=== PATIENT | male | born 1945 | race Caucasian/White ===

== ENCOUNTER → 2016-12-27 | Day surgery (SDC) | payer OTHER, MEDICARE ==
[2016-12-21 08:13] VITALS: Ht 177.8 cm; Wt 121.4 kg
[~2016-12-27] VITALS: Ht 177.8 cm; Wt 121.4 kg
[~2016-12-27] MED LIST: ATOR-24 PO; ATROPINE SULFATE 0.1 MG/ML 5ML SYR IV PRN; EpHEDrine SULFATE INJ 50 MG/ML AMP IV PRN; FAMO20TA9 PO; FENTANYL CITRATE INJ 50 MCG/1 ML 2 ML VIAL ONE; ISOS30TA35 PO; LEVO175T3 PO; LIDOCAINE HCL 2% 2 ML VIAL (20MG/ML) ONE; LISI-789 PO; METO25TA56 PO; ONDANSETRON INJ 2 MG/ML 2 ML VIAL IV PRN; PROPOFOL IV EMULSION 10 MG/ML 20 ML VIAL IV ONE; WARF7.5T PO
--- NOTE | 2016-12-27 08:33 | Endo History and Physical ---
History & Physical Date of Service: Dec 27, 2016. Chief Complaint: history of polyps Referring Physician: Dr. Samm Dillard History of Present Illness Patient for colonoscopy, history of numerous colon polyps for surveillance colonoscopy today. Past Medical History Angioplasty/Stent, Gastrointestinal Disorder, Reflux, High Cholesterol, CABG, Hypertension, Thyroid Disease, [place] Past Surgical History Hx Cardiac Surgery: Yes (CARDIAC CATH W TOTAL 10 STENTS-LAST ONE 06/2014 W 3- RAN,CABG) Hx Internal Defibrillator: No Hx Pacemaker: No Hx Abdominal Surgery: No Hx of Implantable Prosthesis: No Hx Post-Op Nausea and Vomiting: No Hx Cancer Surgery: No Hx Thoracic Surgery: No Hx Orthopedic: No Hx Urinary Tract Surgery: No Family History Colon CA, Polyp Social History Smoking Status: Former Smoker Hx Substance Use: No Hx Alcohol Use: No Allergies Coded Allergies: NO KNOWN DRUG ALLERGIES (Verified Allergy, Unknown, NONE, 12/21/16) Current Medications Reported Home Medications Medications Dose Route/Sig Max Daily Dose Days Date Category Dose Instructions Imdur Ext Rel (Isosorbide Mononitrate) 30 Mg Tabcr 1 Tab PO QPM 12/21/16 Reported Lopressor (Metoprolol Tartrate) 25 Mg Tab 25 Mg PO BID 12/21/16 Reported Lipitor (Atorvastatin Calcium) 40 Mg Tab 40 Mg PO QPM 10/16/15 Reported Coumadin (Warfarin Sodium) 7.5 Mg Tab 7.5 Mg PO QPM 10/16/15 Reported PER PT TO HOLD 5 DAYS BEFORE PROCEDURE Pepcid (Famotidine) 20 Mg Tab 1 Tab PO BID 10/16/15 Reported Zestril (Lisinopril) 2.5 Mg Tab 1 Tab PO DAILY AFTERNOON 10/16/15 Reported Levothyroxine Sodium 175 Mcg Tab 1 Tab PO QAM 10/16/15 Reported Vital Signs Weight (Kilograms): 121.36 Height (Feet): 5 Height (Inches): 10 Date Time Temp Pulse Resp B/P (MAP) Pulse Ox O2 Delivery O2 Flow Rate FiO2 12/27/16 08:13 36.7 84 20 143/87 (105) 94 Room Air Physical Exam General Appearance: no apparent distress Respiratory/Chest: Auscultation: breath sounds normal Cardiovascular: Heart Auscultation: RRR Abdomen: Inspection & Palpation: soft Assessment and Plan Evaluation for colon polyps, risks discussed to include bleeding, infection, perforation, pain and missed polyps.
--- NOTE | 2016-12-27 09:11 | GI REPORT ---
Procedure Date: 12/27/2016 8:34 AM Procedure: Colonoscopy Indications: High risk colon cancer surveillance: Personal history of colonic polyps Medicines: Monitored Anesthesia Care Complications: No immediate complications. Estimated blood loss: Minimal. Estimated Blood Loss: Estimated blood loss was minimal. Procedure: Pre-Anesthesia Assessment: - Prior to the procedure, a History and Physical was performed, and patient medications, allergies and sensitivities were reviewed. The patient's tolerance of previous anesthesia was reviewed. - The risks and benefits of the procedure and the sedation options and risks were discussed with the patient. All questions were answered and informed consent was obtained. - Patient identification and proposed procedure were verified prior to the procedure by the physician, the nurse and the reliability technologist. The procedure was verified in the procedure room. - Pre-procedure physical examination revealed no contraindications to sedation. - ASA Grade Assessment: IV - A patient with severe systemic disease that is a constant threat to life. - After reviewing the risks and benefits, the patient was deemed in satisfactory condition to undergo the procedure. - Immediately prior to administration of medications, the patient was re-assessed for adequacy to receive sedatives. - The heart rate, respiratory rate, oxygen saturations, blood pressure, adequacy of pulmonary ventilation, and response to care were monitored throughout the procedure. - The physical status of the patient was re-assessed after the procedure. After I obtained informed consent, the scope was passed under direct vision. Throughout the procedure, the patient's blood pressure, pulse, and oxygen saturations were monitored continuously. The Scope was introduced through the anus and advanced to the terminal ileum. The colonoscopy was performed without difficulty. The patient tolerated the procedure well. The quality of the bowel preparation was good. Findings: The perianal and digital rectal examinations were normal. Pertinent negatives include normal sphincter tone. The terminal ileum appeared normal. A 8 mm polyp was found in the transverse colon. The polyp was sessile. The polyp was removed with a hot snare. Resection and retrieval were complete. Estimated blood loss was minimal. Multiple semi-sessile polyps were found in the recto-sigmoid colon. The polyps were 3 to 5 mm in size. These polyps were removed with a cold snare. Polyp resection was incomplete due to the multitude of polyps. The resected tissue was retrieved. Estimated blood loss was minimal. Internal hemorrhoids were found during retroflexion. The hemorrhoids were mild. The exam was otherwise without abnormality. Impression: - The examined portion of the ileum was normal. - One 8 mm polyp in the transverse colon, removed with a hot snare. Resected and retrieved. - Multiple 3 to 5 mm polyps at the recto-sigmoid colon, removed with a cold snare. Incomplete resection. Resected tissue retrieved. - Internal hemorrhoids. - The examination was otherwise normal. Recommendation: - Discharge patient to home (ambulatory). - Advance diet as tolerated today. - Await pathology results. - Repeat colonoscopy in 1 - 3 years for surveillance based on pathology results. Maribell Parker D.O. Maribell Parker, 12/27/2016 9:11:06 AM This report has been signed electronically. Note Initiated On: 12/27/2016 8:34 AM I attest to the content of the Intraoperative Record and orders documented therein, exceptions below
--- NOTE | 2016-12-27 09:13 | Discharge Instructions ---
Endoscopy Patient Instructions Date / Procedure(s) Performed Dec 27, 2016. Colonoscopy Allergy Information Coded Allergies: NO KNOWN DRUG ALLERGIES (Verified Allergy, Unknown, NONE, 12/21/16) Discharge Date / Findings Dec 27, 2016. Hemorrhoids Multiple colon polyps Medication Instructions Stopped Medication(s): last dose Warfarin 12/21 Reported Home Medications Medications Dose Route/Sig Max Daily Dose Days Date Category Dose Instructions Imdur Ext Rel (Isosorbide Mononitrate) 30 Mg Tabcr 1 Tab PO QPM 12/21/16 Reported Lopressor (Metoprolol Tartrate) 25 Mg Tab 25 Mg PO BID 12/21/16 Reported Lipitor (Atorvastatin Calcium) 40 Mg Tab 40 Mg PO QPM 10/16/15 Reported Coumadin (Warfarin Sodium) 7.5 Mg Tab 7.5 Mg PO QPM 10/16/15 Reported PER PT TO HOLD 5 DAYS BEFORE PROCEDURE Pepcid (Famotidine) 20 Mg Tab 1 Tab PO BID 10/16/15 Reported Zestril (Lisinopril) 2.5 Mg Tab 1 Tab PO DAILY AFTERNOON 10/16/15 Reported Levothyroxine Sodium 175 Mcg Tab 1 Tab PO QAM 10/16/15 Reported Provider Instructions Activity Restrictions - No exercising or heavy lifting for 24 hours. - Do not drink alcohol the day of the procedure. - Do not drive a car or operate machinery until the day after the procedure. - Do not make any important decisions or sign important papers in 24 hours after the procedure. Following Day: - Return to full activity which may include returning to work/school. Diet Start your diet with liquids and light foods (jello, soup, juice, toast). Then eat your usual diet if not nauseated. Treatment For Common After Affects For mild abdominal pain, bloating, or excessive gas: - Rest - Eat lightly - Lie on right side Follow-Up Information Follow-up with Jennifer Jackelin as scheduled May restart coumadin this evening. Anesthesia Information What You Should Know You have had a procedure that required some medicine to reduce anxiety and discomfort. This treatment is called moderate sedation. After receiving the treatment, you may be sleepy, but you will be able to breathe on your own. The effects of the treatment may last for several hours. Follow these instructions along with Activity/Diet recommendations noted above: * Do NOT do anything where dizziness or clumsiness would be dangerous. * Rest quietly at home today, then you can be up and about tomorrow. * Have a responsible person stay with you the rest of today. * You may have had an I.V. today. If so, you may take the dressing off later today. Recommendations Call your doctor if: * Trouble breathing * Continuous vomiting for more than 24 hours * Temperature above 101 degrees * Severe abdominal pain or bloating * Pain not relieved by pain medicine ordered * There is increased drainage or redness from any incision * A large amount of rectal bleeding greater than 2-3 tablespoons. (If you had a polyp/s removed or have hemorrhoids, a small amount of blood - from the rectum is to be expected.) * You have any unanswered questions or concerns. IN THE EVENT OF A SERIOUS EMERGENCY, GO TO THE NEAREST EMERGENCY ROOM Your discharge instructions were prepared by provider Maribell Parker. Patient Instructions Signature Page [employer] Patient (or Guardian) Signature/Date: I have read and understand the instructions given to me by my caregivers. Caregiver/RN/Doctor Signature/Date: The above-named patient and/or guardian has received patient instructions on this date. + Original Patient Signature Page (only) stays with chart. Please make copy for patient.
--- NOTE | 2016-12-27 09:15 | Anesthesiology Progress Note ---
Anesthesia Post Op Note Date & Time Dec 27, 2016 at 09:15 Vital Signs Pain Intensity: 0 Vital Signs Past 12 Hours Date Time Temp Pulse Resp B/P (MAP) Pulse Ox O2 Delivery O2 Flow Rate FiO2 12/27/16 08:13 36.7 84 20 143/87 (105) 94 Room Air Notes Mental Status: alert / awake / arousable, participated in evaluation Pt Amnestic to Procedure: Yes Nausea / Vomiting: adequately controlled Pain: adequately controlled Airway Patency, RR, SpO2: stable & adequate BP & HR: stable & adequate Hydration State: stable & adequate Anesthetic Complications: no major complications apparent
[2016-12-27 09:42] VITALS: BP 121/79; PULSE 78; O2SAT 95
== END | disposition home or self-care (01) ==
LOC: C.GI 07:50
PROVIDERS: ATTEND Internal Medicine Gastroenterology
DX: Z12.11 Encounter for screening for malignant neoplasm of colon (principal); D12.3 Benign neoplasm of transverse colon; D12.7 Benign neoplasm of rectosigmoid junction; K64.8 Other hemorrhoids; Z86.010 Personal history of colon polyps; Z80.0 Family history of malignant neoplasm of digestive organs; Z83.71 Family history of colonic polyps; I10 Essential (primary) hypertension; I25.2 Old myocardial infarction; I25.10 Atherosclerotic heart disease of native coronary artery without angina pectoris; K21.9 Gastro-esophageal reflux disease without esophagitis; E07.9 Disorder of thyroid, unspecified; Z95.5 Presence of coronary angioplasty implant and graft; Z95.1 Presence of aortocoronary bypass graft; Z87.891 Personal history of nicotine dependence; Z79.01 Long term (current) use of anticoagulants; Z79.899 Other long term (current) drug therapy